=== PATIENT | male | born 1995 | race Caucasian/White ===

== ENCOUNTER 2019-11-08 12:55 | Emergency (ER) | payer OTHER ==
[2019-11-08] MEDS ORDERED: KETOROLAC TROMETHAMINE INJ/PF 30 MG/1 ML SDV IV ONE (13:53)
[2019-11-08] MEDS ORDERED: ONDANSETRON HCL INJ/PF 4 MG/2 ML SDV IV ONE (13:53)
--- NOTE | 2019-11-08 14:01 | ER Document Report ---
ED Medical Screen (RME) - General Chief Complaint: Flank Pain Stated Complaint: RIGHT FLANK PAIN,BLOOD IN URINE Time Seen by Provider: 11/08/19 13:48 Notes: Patient is a 24-year-old male who presents emergency department with a chief complaint of right flank pain. Patient reports that started yesterday afternoon. Patient reports he is also had pain with urination, urinary hesitancy and blood in the urine. Patient denies history of kidney stones. Patient denies nausea, vomiting or diarrhea. Patient reports he has not had any pain medications. Patient reports the pain is intermittent and appears to be worse when he attempts to urinate. TRAVEL OUTSIDE OF THE [place] IN LAST 30 DAYS: No - Related Data Allergies/Adverse Reactions: No Known Allergies Allergy (Verified 11/08/19 13:48) Past Medical History - Social History Chew tobacco use (# tins/day): No Frequency of alcohol use: None Drug Abuse: None Physical Exam - Vital signs Vitals: Temp Pulse Resp BP Pulse Ox 98.6 F 95 18 125/62 100 11/08/19 13:19 11/08/19 13:19 11/08/19 13:19 11/08/19 13:19 11/08/19 13:19 Course - Re-evaluation Re-evalutation: 11/08/19 14:01 I have greeted and performed a rapid initial assessment of this patient. A comprehensive ED assessment and evaluation of the patient, analysis of test results and completion of the medical decision making process will be conducted by additional ED providers. - Vital Signs Vital signs: Temp Pulse Resp BP Pulse Ox 98.6 F 95 18 125/62 100 11/08/19 13:19 11/08/19 13:19 11/08/19 13:19 11/08/19 13:19 11/08/19 13:19
[2019-11-08 14:37] LABS: AMORPHOUS SEDIMENT,URINE TRACE /HPF; APPEARANCE,URINE CLOUDY; BILIRUBIN,URINE NEGATIVE (NEGATIVE); CALCIUM OXALATE CRYSTALS,URINE RARE /HPF; COLOR,URINE AMBER; GLUCOSE, URINE NEGATIVE (NEGATIVE); KETONES,URINE NEGATIVE (NEGATIVE); LEUKOCYTE ESTERASE,URINE MODERATE (NEGATIVE); NITRITE,URINE NEGATIVE (NEGATIVE); PROTEIN,URINE 100 mg/dL (NEGATIVE); URINE SPECIFIC GRAVITY 1.023
--- NOTE | 2019-11-08 14:54 | RADIOLOGY REPORT (SQ) ---
EXAM DESCRIPTION: CT ABD/PELVIS NO ORAL OR IV COMPLETED DATE/TIME: 11/08/2019 1:34 pm REASON FOR STUDY: right flank pain. COMPARISON: None. TECHNIQUE: CT scan of the abdomen and pelvis performed without intravenous or oral contrast. Images reviewed with lung, soft tissue, and bone windows. Reconstructed coronal and sagittal MPR images revi ewed. All images stored on PACS. All CT scanners at this facility use dose modulation, iterative reconstruction, and/or weight based d osing when appropriate to reduce radiation dose to as low as reasonably achievable (ALARA). [facility]: Dose Right [facility]: CareDose [facility]: Dose Right [facility]: Teradose 4D [facility]: Smart Musicnotes RADIATION DOSE: CT Rad equipment meets quality standard of care and radiation dose reduction techniq ues were employed. CTDIvol: 5.1 mGy. DLP: 269 mGy-cm.mGy. LIMITATIONS: None. FINDINGS: LOWER CHEST: No significant findings. No nodules or infiltrates. NON-CONTRASTED LIVER, SPLEEN, ADRENALS: Evaluation limited by lack of IV contrast. No identified sign ificant masses. PANCREAS: No masses. No peripancreatic inflammatory changes. GALLBLADDER: No identified stones by CT criteria. No inflammatory changes to suggest cholecystitis. RIGHT KIDNEY AND URETER: No suspicious masses. Assessment limited by lack of IV contrast. No signif icant calcifications. No hydronephrosis or hydroureter. LEFT KIDNEY AND URETER: No suspicious masses. Assessment limited by lack of IV contrast. No signifi cant calcifications. No hydronephrosis or hydroureter. AORTA AND RETROPERITONEUM: No aneurysm. No retroperitoneal masses or adenopathy. BOWEL AND PERITONEAL CAVITY: No obvious masses or inflammatory changes. No free fluid. APPENDIX: Normal. PELVIS, BLADDER, AND ABDOMINAL WALL:No abnormal masses. No free fluid. Bladder normal. BONES: No significant findings. OTHER: No other significant finding. IMPRESSION: 1. No renal or ureteral calculi. No hydronephrosis. 2. Appendix is normal. COMMENT: Quality ID # [id number]: Final reports with documentation of one or more dose reduction techniques (e.g., Automated exposure control, adjustment of the mA and/or kV according to patient size, use of iterative reconstruction technique) TECHNICAL DOCUMENTATION: JOB ID: [id number] [employer]- All Rights Reserved Reading location - IP/workstation name: [email or web address]
[2019-11-08 15:29] LABS: ABSOLUTE EOSINOPHILS # (AUTO) 0.3 10^3/uL (0.0-0.6); ABSOLUTE LYMPHOCYTES (AUTO) 1.2 10^3/uL (0.5-4.7); ABSOLUTE MONOCYTES (AUTO) 0.5 10^3/uL (0.1-1.4); ABSOLUTE NEUT (AUTO) 6.2 10^3/uL (1.7-8.2); BASOPHILS % (AUTO) 0.2 % (0-2); EOSINOPHILS % (AUTO) 3.1 % (0-6); HEMATOCRIT 40.9 % (37.9-51.0); HEMOGLOBIN 14.1 g/dL (13.5-17.0); LYMPHOCYTES % (AUTO) 14.6 % (13-45); MEAN CORPUSCULAR HEMOGLOBIN 29.4 pg (27.0-33.4); MEAN CORPUSCULAR HGB CONC 34.4 g/dL (32.0-36.0); MEAN CORPUSCULAR VOLUME 85 fl (80-97); MONOCYTES % (AUTO) 6.3 % (3-13); PLATELET COUNT 191 10^3/uL (150-450); RED BLOOD COUNT 4.79 10^6/uL (4.35-5.55); RED CELL DISTRIBUTION WIDTH 12.3 % (11.5-14.0); SEGMENTED NEUTROPHILS % (AUTO) 75.8 % (42-78); TOTAL CELLS COUNTED % (AUTO) 100 %; WHITE BLOOD COUNT 8.1 10^3/uL (4.0-10.5)
[2019-11-08 15:47] LABS: ALKALINE PHOSPHATASE 46 U/L (38-126); ANION GAP 10 (5-19); ASPARTATE AMINO TRANSFERASE 27 U/L (17-59); BILIRUBIN,DIRECT 0.2 mg/dL (0.0-0.4); BILIRUBIN,TOTAL 0.6 mg/dL (0.2-1.3); BLOOD UREA NITROGEN 11 mg/dL (7-20); CALCIUM 9.5 mg/dL (8.4-10.2); CARBON DIOXIDE 31 mmol/L (22-30); CHLORIDE 100 mmol/L (98-107); GLUCOSE 97 mg/dL (75-110); POTASSIUM 4.5 mmol/L (3.6-5.0); TOTAL PROTEIN 6.9 g/dL (6.3-8.2)
[2019-11-08] MEDS ORDERED: PHENAZOPYRIDINE HCL 200 MG TABLET PO ONE (16:53)
--- NOTE | 2019-11-08 16:58 | ER Document Report ---
ED General - General Chief Complaint: Flank Pain Stated Complaint: RIGHT FLANK PAIN,BLOOD IN URINE Time Seen by Provider: 11/08/19 13:48 Mode of Arrival: Ambulatory Information source: Patient Notes: 24-year-old male presents emergency department with complaints of right-sided flank pain, pain when he voids urgency. Reports symptoms started last night, early this am. Reports he had some testicular pain last week the left testicle hurt worse than the right but that feels better now. Reports he is sexually active does not use protection. Denies penile discharge. Denies fever vomiting diarrhea but reports he felt really warm last night like he might have had a fever. Denies trauma. Patient reports he just really hurts when he voids. He denies history of kidney stones. He reports this has never happened to him before. TRAVEL OUTSIDE OF THE [place] IN LAST 30 DAYS: No - HPI Onset: This morning Onset/Duration: Sudden Quality of pain: Burning Associated symptoms: None Exacerbated by: Other - voiding Relieved by: Denies Similar symptoms previously: No Recently seen / treated by doctor: No - Related Data Allergies/Adverse Reactions: No Known Allergies Allergy (Verified 11/08/19 13:48) Past Medical History - General Information source: Patient - Social History Smoking Status: Never Smoker Chew tobacco use (# tins/day): No Frequency of alcohol use: None Drug Abuse: None Occupation: [employer] Family History: None Patient has suicidal ideation: No Patient has homicidal ideation: No Pulmonary Medical History: Reports: Hx Asthma Past Surgical History: Reports: Other - Ear surgery Review of Systems - Review of Systems Notes: Review HPI for review of systems., All other systems negative Physical Exam - Vital signs Vitals: Temp Pulse Resp BP Pulse Ox 98.6 F 95 18 125/62 100 11/08/19 13:19 11/08/19 13:19 11/08/19 13:19 11/08/19 13:19 11/08/19 13:19 - Notes Notes: PHYSICAL EXAMINATION: GENERAL: Well-appearing and in no acute distress HEAD: Atraumatic, normocephalic. EYES: Pupils equal round and reactive to light, extraocular movements intact, sclera anicteric, conjunctiva are normal. ENT: nares patent, oropharynx clear without exudates. Moist mucous membranes. NECK: Normal range of motion, supple without lymphadenopathy LUNGS: CTAB and equal. No wheezes rales or rhonchi. HEART: Regular rate and rhythm without murmurs ABDOMEN: Soft, no tenderness. No guarding, no rebound BACK: Denies back pain, denies CVA Tenderness EXTREMITIES: Normal range of motion, NEUROLOGICAL: Cranial nerves grossly intact. Normal sensory/motor exams. PSYCH: Normal mood, normal affect. SKIN: Warm, Dry, normal turgor, multiple superficial scratches noted to dorsal hands, pt reports he scratched himself at work Course - Re-evaluation Re-evalutation: 11/08/19 18:34 24-year-old male presents emergency department with reports of pain with void hematuria reports it started early this morning. Reports this never happened to before. Denies testicular pain at this time denies penile discharge. CBC Chem- 12 unremarkable. UA shows large amount of leukocytes and blood. Physical exam is negative. Ultrasounds are all negative CT negative for kidney stone. Patient was instructed on hematuria importance of follow-up with urologist. He was instructed on Macrobid. He was instructed to return for any type of fever or worsening pain concerns he verbalized understanding to all instructions. He is aware that the STD cultures are still pending. He does not think he has an STD and does not wish to wait. He was instructed he would be called with results if he needed to come back for treatment. He verbalized understanding to all instructions. Abdomen/Pelvis CT 11/08/19 13:54 IMPRESSION: 1. No renal or ureteral calculi. No hydronephrosis. 2. Appendix is normal. Renal Ultrasound 11/08/19 16:33 IMPRESSION: No hydronephrosis. Scrotum Ultrasound 11/08/19 16:53 IMPRESSION: NO EVIDENCE OF TESTICULAR MASS OR TORSION. 11/08/19 18:41 Laboratory 11/08/19 11/08/19 11/08/19 14:00 15:12 15:12 WBC 8.1 RBC 4.79 Hgb 14.1 Hct 40.9 MCV 85 MCH 29.4 MCHC 34.4 RDW 12.3 Plt Count 191 Lymph % (Auto) 14.6 [place] % (Auto) 6.3 Eos % (Auto) 3.1 Baso % (Auto) 0.2 Absolute Neuts (auto) 6.2 Absolute Lymphs (auto) 1.2 Absolute Monos (auto) 0.5 Absolute Eos (auto) 0.3 Absolute Basos (auto) 0.0 Seg Neutrophils % 75.8 Sodium 140.5 Potassium 4.5 Chloride 100 Carbon Dioxide 31 H Anion Gap 10 BUN 11 Creatinine 0.75 Est GFR ( Amer) > 60 Est GFR (MDRD) Non-Af > 60 Glucose 97 Calcium 9.5 Total Bilirubin 0.6 Direct Bilirubin 0.2 Neonat Total Bilirubin Not Reportable Neonat Direct Bilirubin Not Reportable Neonat Indirect Bili Not Reportable AST 27 ALT 31 Alkaline Phosphatase 46 Total Protein 6.9 Albumin 4.0 Urine Color MAYA Urine Appearance CLOUDY Urine pH 6.0 Ur Specific [place] 1.023 Urine Protein 100 H Urine Glucose (UA) NEGATIVE Urine Ketones NEGATIVE Urine Blood LARGE H Urine Nitrite NEGATIVE Urine Bilirubin NEGATIVE Urine Urobilinogen 4.0 H Ur Leukocyte Esterase MODERATE H Urine WBC (Auto) >182 Urine RBC (Auto) >182 Urine WBC Clumps OCC Calcium Oxalate Cr Auto RARE Amorphous Sediment Auto TRACE Urine Mucus (Auto) FEW Urine Ascorbic Acid NEGATIVE 11/08/19 18:58 Message left on patient's phone [phone] to return to the emergency department for treatment. 11/08/19 Patient was finally contacted and did return for treatment for chlamydia. 11/09/19 18:42 - Vital Signs Vital signs: Temp Pulse Resp BP Pulse Ox 98.0 F 69 18 104/65 97 11/08/19 19:01 11/08/19 19:01 11/08/19 19:01 11/08/19 19:01 11/08/19 19:01 - Laboratory Result Diagrams: 11/08/19 15:12 11/08/19 15:12 Laboratory results interpreted by me: 11/08/19 11/08/19 11/08/19 14:00 15:12 17:59 Carbon Dioxide 31 H Urine Protein 100 H Urine Blood LARGE H Urine Urobilinogen 4.0 H Ur Leukocyte Esterase MODERATE H Chlamydia DNA (PCR) DETECTED H - Diagnostic Test Radiology reviewed: Reports reviewed Discharge - Discharge Clinical Impression: Pain on voiding, Hematuria UTI (urinary tract infection) Qualifiers: Urinary tract infection type: site unspecified Hematuria presence: with hematuria Qualified Code(s): N39.0 - Urinary tract infection, site not specified Condition: Stable Disposition: HOME, SELF-CARE Instructions: Nitrofurantoin ([facility]), Urinary Tract Infection ([facility]) Additional Instructions: *You have been evaluated for pain while voiding, hematuria, UTI Your STD cultures are still pending. You will be contacted should you need to be treated for an STD. *Take medication as prescribed *Push fluids *Monitor your symptoms, monitor your temperature as discussed *Follow up with your primary care provider within one week for recheck and referral to urology as indicated *Return to ED for worsening condition, changes, needs Prescriptions: Nitrofurantoin/Nitrofuran Mac [Macrobid 100 mg Capsule] 100 mg PO BID #20 capsule
--- NOTE | 2019-11-08 18:15 | RADIOLOGY REPORT (SQ) ---
EXAM DESCRIPTION: U/S RETROPERITON (RENAL/AORTA) COMPLETED DATE/TIME: 11/08/2019 5:25 pm REASON FOR STUDY: flank pain COMPARISON: Earlier CT TECHNIQUE: Dynamic and static grayscale images acquired of the kidneys and bladder and recorded on P ACS. Additional selected color Doppler and spectral images recorded. LIMITATIONS: Bowel gas. FINDINGS: RIGHT KIDNEY: Normal size. Normal echogenicity. No solid or suspicious masses. No hydronep hrosis. No calcifications. LEFT KIDNEY: Normal size. Normal echogenicity. No solid or suspicious masses. No hydronephrosis. No calcifications. BLADDER: Not visualized due to bowel gas. OTHER FINDINGS: No other significant finding. IMPRESSION: No hydronephrosis. TECHNICAL DOCUMENTATION: JOB ID: [id number] [id number] 2010 [employer]- All Rights Reserved Reading location - IP/workstation name: [email or web address]
--- NOTE | 2019-11-08 18:16 | RADIOLOGY REPORT (SQ) ---
EXAM DESCRIPTION: U/S SCROTUM W/DOPPLER COMPLETED DATE/TIME: 11/08/2019 5:41 pm REASON FOR STUDY: TESTICULAR PAIN L>R COMPARISON: None. TECHNIQUE: Static and realtime ewing scale imaging of the scrotum and testes. Selected color Doppler and spectral images recorded to document blood flow. LIMITATIONS: None. FINDINGS: RIGHT: TESTICLE: Normal size. Normal echotexture. Normal blood flow. No mass. EPIDIDYMIS: Normal. HYDROCELE OR VARICOCELE: Small hydrocele. No varicocele. HERNIA OR EXTRA-TESTICULAR MASS: No. OTHER: No other significant finding. LEFT: TESTICLE: Normal size. Normal echotexture. Normal blood flow. No mass. EPIDIDYMIS: Normal. HYDROCELE OR VARICOCELE: Small hydrocele. No varicocele. HERNIA OR EXTRA-TESTICULAR MASS: No. OTHER: No other significant finding. IMPRESSION: NO EVIDENCE OF TESTICULAR MASS OR TORSION. TECHNICAL DOCUMENTATION: JOB ID: [id number] [id number] 2010 [id number]- All Rights Reserved Reading location - IP/workstation name: [email or web address]
[2019-11-08] MEDS ORDERED: NITROFURANTOIN MONOHYD/M-CRYST 100 MG CAPSULE PO ONE (18:45)
[2019-11-08 19:01] VITALS: BP 104/65
[2019-11-08 19:43] LABS: CHLAM PCR DETECTED (NOT DETECT)
== END 2019-11-08 19:07 | disposition home or self-care (01) ==
LOC: ER 12:55
DX: N39.0 Urinary tract infection, site not specified (principal); R31.9 Hematuria, unspecified; R10.9 Unspecified abdominal pain
CPT/HCPCS: 99284; 96374; 96375; 36415; 87086; 85025; 87088; 80053; 81001; 87186; 87491; 87591; 76770; 76870; 93976; 74176; J1885; J3490; J2405; J8499

== ENCOUNTER 2019-11-09 13:38 | Emergency (ER) | payer OTHER ==
[2019-11-09] MEDS ORDERED: CEFTRIAXONE INJ 250 MG VIAL IM ONE (13:52)
[2019-11-09] MEDS ORDERED: LIDOCAINE 1% INJ-PF (10 MG/ML) 30 ML SDV INJ ONE (13:53)
[2019-11-09] MEDS ORDERED: AZITHROMYCIN 250 MG TABLET PO ONE (13:53)
--- NOTE | 2019-11-09 13:56 | ER Document Report ---
HPI - HPI Patient complains to provider of: chlamydia Time Seen by Provider: 11/09/19 13:52 Onset: Other Context: Patient presents today for treatment of chlamydia. He was evaluated yesterday for pain when he voided hematuria. Patient did not want to wait for his STD results. After he left it was noted he was positive for chlamydia. Patient is irritated. He wants to know how he got the chlamydia. Associated Symptoms: None Exacerbated by: Denies Relieved by: Denies Similar symptoms previously: Yes Recently seen / treated by doctor: Yes - REPRODUCTIVE Reproductive: DENIES: : Past Medical History - General Information source: Patient - Social History Smoking Status: Current Every Day Smoker Frequency of alcohol use: None Drug Abuse: None Family History: None Pulmonary Medical History: Reports: Hx Asthma Renal/ Medical History: Reports: Hx Kidney Stones Surgical Hx: Negative Past Surgical History: Reports: Other - Ear surgery Vertical Provider Document - CONSTITUTIONAL Agree With Documented VS: Yes Exam Limitations: No Limitations General Appearance: WD/WN, No Apparent Distress - INFECTION CONTROL TRAVEL OUTSIDE OF THE [place] IN LAST 30 DAYS: No - HEENT HEENT: Atraumatic - NECK Neck: Supple - RESPIRATORY Respiratory: No Respiratory Distress - MUSCULOSKELETAL/EXTREMETIES Musculoskeletal/Extremeties: MAEW, FROM - NEURO Level of Consciousness: Awake, Alert, Appropriate Motor/Sensory: No Motor Deficit - DERM Integumentary: Warm, Dry, No Rash Course - Re-evaluation Re-evalutation: 11/09/19 13:58 Patient was instructed on chlamydia. Instructed on the importance of using precaution when having sex. He was instructed follow-up with health department. Patient is very irritated does not seem to be interested in information. Instructions given to him on his discharge instructions. Discharge - Discharge Clinical Impression: Chlamydia Condition: Stable Disposition: HOME, SELF-CARE Instructions: Azithromycin ([facility]), Chlamydia ([facility]), Gonorrhea ([facility]), [facility] Department, Rocephin ([facility]) Additional Instructions: *You have been needed for chlamydia *Follow up with the health department for recheck within 1 week *Notify all partners you have had sex with that you have been treated for chlamydia *Always use a condom during sex *Return to ED for worsening condition, changes, needs
[2019-11-09 14:18] VITALS: BP 131/72
== END 2019-11-09 14:18 | disposition home or self-care (01) ==
LOC: ER 13:38
DX: A74.9 Chlamydial infection, unspecified (principal); F17.200 Nicotine dependence, unspecified, uncomplicated; J45.909 Unspecified asthma, uncomplicated
CPT/HCPCS: 99283; 96372; J3490; J0696

== ENCOUNTER 2020-02-26 00:21 | Emergency (ER) | payer OTHER ==
--- NOTE | 2020-02-26 02:13 | ER Document Report ---
ED GI/ - General Chief Complaint: Vomiting Stated Complaint: NAUSEA/VOMITING Time Seen by Provider: 02/26/20 02:00 Notes: 25-year-old man presents to the emergency department with a history of nausea vomiting and feeling poorly. Apparently he had vomiting episode at work and was told he needed medical evaluation. His employer noted that they were concerned and that he should be seen. He states that he feels better now and is only had 3 episodes of vomiting today. No diarrhea, no fever, no abdominal pain. TRAVEL OUTSIDE OF THE [place] IN LAST 30 DAYS: No - Related Data Allergies/Adverse Reactions: No Known Allergies Allergy (Verified 11/08/19 13:48) Past Medical History - Social History Smoking Status: Never Smoker Chew tobacco use (# tins/day): No Frequency of alcohol use: None Drug Abuse: None Family History: None Patient has homicidal ideation: No Pulmonary Medical History: Reports: Hx Asthma Renal/ Medical History: Reports: Hx Kidney Stones Past Surgical History: Reports: Other - Ear surgery Review of Systems - Review of Systems Notes: Constitutional: Negative for fever. HENT: Negative for sore throat. Eyes: Negative for visual changes. Cardiovascular: Negative for chest pain. Respiratory: Negative for shortness of breath. Gastrointestinal: See HPI Genitourinary: Negative for dysuria. Musculoskeletal: Negative for back pain. Skin: Negative for rash. Neurological: Negative for headaches, weakness or numbness. 10 point ROS negative except as marked above and in HPI. Physical Exam - Vital signs Vitals: Temp Pulse Resp BP Pulse Ox 98.3 F 81 18 109/65 96 02/26/20 01:45 02/26/20 01:45 02/26/20 01:45 02/26/20 01:45 02/26/20 01:45 - Notes Notes: PHYSICAL EXAMINATION: Physical Exam: General: Well-nourished well-developed in no acute distress HEENT: NC/AT, pupils equal round and reactive to light, MM moist,nares clear, oropharynx clear, airway patent Neck: supple, no adenopathy, no masses. Good range of motion Lungs: clear, no wheezing, no rales no rhonchi CVS: Regular rate and rhythm no murmur gallop or rub Abdomen: Soft, active, nontender, no masses, no hepatosplenomegaly Ext: No edema, clubbing or cyanosis. Neuro: Alert and responsive, moving all 4 extremities on command, cranial nerves intact, no focal findings Skin: Intact no open lesions, no rash PSYCH: Normal mood, normal affect. Course - Re-evaluation Re-evalutation: 02/26/20 02:13 Patient presented with history of nausea and vomiting x3 episodes today, he is now feeling much better and states that he needs a work note. States that he is not going to be able to return to work tomorrow and would like a note to return later on Sunday. - Vital Signs Vital signs: Temp Pulse Resp BP Pulse Ox 98.3 F 81 18 109/65 96 02/26/20 01:56 02/26/20 01:45 02/26/20 01:45 02/26/20 01:45 02/26/20 01:45 Discharge - Discharge Clinical Impression: Nausea and vomiting Qualifiers: Vomiting type: unspecified Vomiting Intractability: unspecified Qualified Code(s): R11.2 - Nausea with vomiting, unspecified Condition: Good Disposition: HOME, SELF-CARE Instructions: Vomiting (OM) Additional Instructions: You were seen in the emergency department tonight with a history of nausea and vomiting. You state that your symptoms are resolving you feel much better and needed a note for work. I am providing you with a note for work with the understanding that if your symptoms return or if you have further difficulties he will seek medical care. HOME CARE INSTRUCTIONS & INFORMATION: Thank you for choosing us for your medical needs. We hope you're satisfied with the care you received. After you leave, you must properly care for your problem and, at the same time, observe its progress. Any condition can change. Some illnesses can change rapidly over hours or days. If your condition worsens, return to the Emergency Department or see your physician promptly. ABOUT YOUR X-RAYS AND EKG'S: If you had an EKG or X-rays taken, they have been read by the Emergency Physician. The X-rays and EKG's will also be read by a Radiologist or Jailkeeper within 24 hours. If discrepancies are noted, you will be notified by telephone. Please be certain the ED has a correct telephone number & address where you can be reached. Also, realize that some fractures or abnormalities do not show up on initial X-rays. If your symptoms continue, see your physician. ABOUT YOUR LABORATORY TEST: If you had laboratory tests, the results have been reviewed by the Emergency Physician. Some test results (for example cultures) may not be available for several days. You will be contacted if any test result shows you need additional treatment. Please be certain the ED has a correct telephone number and address where you can be reached. ABOUT YOUR MEDICATIONS: You will receive instructions on how to take your medicine on the prescription label you receive. Additional information may be provided by the Pharmacy. If you have questions afterwards, call the ED for clarification or further instructions. Some prescribed medications may cause drowsiness. Do not perform tasks such as driving a car or operating machinery without consulting your Pharmacist. If you feel you need a refill of pain medication, your condition will need re-evaluation. Please do not call for a refill of any medication. ABOUT YOUR SIGNATURE: Signature of this document acknowledges to followin. Understanding that you received emergency treatment and that you may be released before al medical problems are known or treated. Please be certain the ED has a correct phone number & address where you can be reached. 2. Acknowledgement that you will arrange for follow-up care as recommended. 3. Authorization for the Emergency Physician to provide information to your follow-up Physician in order to maximize your care. AT ANY TIME, IF YOUR SYMPTOMS CHANGE SIGNIFICANTLY OR WORSEN OR YOU DEVELOP NEW SYMPTOMS, RETURN TO THE EMERGENCY DEPARTMENT IMMEDIATELY FOR RE-EVALUATION. OUR GOAL IS TO PROVIDE EXCELLENT MEDICAL CARE! WE HOPE THAT WE HAVE MET YOUR EXPECTATIONS DURING YOUR EMERGENCY DEPARTMENT VISIT AND THAT YOU FEEL YOU HAVE RECEIVED EXCELLENT CARE! Forms: Return to Work
[2020-02-26 02:32] VITALS: BP 114/61
== END 2020-02-26 02:34 | disposition home or self-care (01) ==
LOC: ER 00:21
DX: R11.2 Nausea with vomiting, unspecified (principal); J45.909 Unspecified asthma, uncomplicated
CPT/HCPCS: 99283